=== PATIENT | female | born 2000 | race Caucasian/White ===

== ENCOUNTER 2021-06-16 15:31 | Emergency (ER) | payer OTHER ==
[2021-06-16] MEDS ORDERED: Acetaminophen 500 MG TAB ONE (15:56)
== END 2021-06-16 16:03 | disposition home or self-care (01) ==
LOC: CSHERS 15:31
DX: S09.90XA Unspecified injury of head, initial encounter (principal); V43.52XA Car driver injured in collision with other type car in traffic accident, initial encounter
CPT/HCPCS: 99283